=== PATIENT | male | born 1995 | race Caucasian/White ===

== ENCOUNTER 2019-04-09 09:44 | Emergency (ER) | payer OTHER ==
[~2019-04-09] VITALS: Ht 162.6 cm; Wt 62.1 kg
[2019-04-09] MEDS ORDERED: TUSSI PRES-B L480 ML PO (13:13)
[2019-04-09] MEDS ORDERED: OSEL75CA PO (13:13)
== END 2019-04-09 13:25 | disposition home or self-care (01) ==
LOC: ER 09:44
DX: B34.9 Viral infection, unspecified (principal)